=== PATIENT | male | born 1990 | race Caucasian/White ===

== ENCOUNTER 2017-03-30 07:55 | Emergency (ER) | payer OTHER ==
[~2017-03-30] VITALS: Ht 175.3 cm; Wt 152.9 kg
[2017-03-30 08:05] VITALS: BP 172/102; Ht 175.3 cm; Wt 152.9 kg
== END 2017-03-30 09:58 | disposition home or self-care (01) ==
LOC: ED 07:55
DX: J40 Bronchitis, not specified as acute or chronic (principal); E78.00 Pure hypercholesterolemia, unspecified; E66.9 Obesity, unspecified; F41.9 Anxiety disorder, unspecified; R03.0 Elevated blood-pressure reading, without diagnosis of hypertension